=== PATIENT | female | born 1935 | race Caucasian/White ===

== ENCOUNTER → 2016-06-22 | Outpatient (CLI) | payer OTHER | END | disposition home or self-care (01) | LOC: CFH 07:43 | PROVIDERS: ATTEND Nurse Practitioner Family | DX: M71.21 Synovial cyst of popliteal space [Baker], right knee (principal) | CPT/HCPCS: 93970 ==

== ENCOUNTER 2016-09-10 16:39 | Inpatient (IN) | payer OTHER ==
[~2016-09-10] VITALS: Ht 160 cm; Wt 70.4 kg
[2016-09-10] MEDS ORDERED: SODIUM CHLORIDE FLUSH 10ML SYR IVF ONE (17:00)
[2016-09-10 17:39] LABS: ASPARTATE AMINO TRANSFERASE 16 U/L (15-37); BLOOD UREA NITROGEN 16 mg/dL (7-18)
[2016-09-10 17:44] LABS: IS PT STATUS REG ER OR PRE ER? YES
[2016-09-10] MEDS ORDERED: OMNIPAQUE 350 MG/ML, 100ML BOTTLE ONE (18:55)
[2016-09-10] MEDS ORDERED: LOVA40TA2 PO (20:31)
[2016-09-10] MEDS ORDERED: VIT1TABL32 PO (20:31)
[2016-09-10] MEDS ORDERED: CHOL400C PO (20:31)
[2016-09-10] MEDS ORDERED: AMLO10TA2 PO (20:31)
[2016-09-10] MEDS ORDERED: TEMAZEPAM 15 MG CAPSULE PO PRN (21:00)
[2016-09-10] MEDS ORDERED: hydrALAzine 20 MG/ML, 1ML IVPush PRN (21:00)
[2016-09-10] MEDS ORDERED: morphine SULFATE 10 MG/ML, 1ML IVPush PRN (21:00)
[2016-09-10] MEDS ORDERED: ACETAMINOPHEN 325 MG TABLET PO PRN (21:00)
[2016-09-10] MEDS ORDERED: ONDANSETRON ODT 4 MG PO PRN (21:00)
[2016-09-10] MEDS ORDERED: NITROGLYCERIN 0.4 MG BOTTLE (25 TABS) SL PRN (21:00)
[2016-09-10] MEDS ORDERED: DOCUSATE 100 MG CAPSULE PO PRN (21:00)
[2016-09-10 21:03] VITALS: BP 126/77
[2016-09-10 22:51] LABS: IS PT STATUS REG ER OR PRE ER? NO
[2016-09-10] MEDS: HEPARIN 5,000 UNITS/ML, 1ML SQ SCH (23:23)
[2016-09-10] MEDS: LOVASTATIN 40 MG TABLET PO SCH (23:23)
[2016-09-10] MEDS: SODIUM CHLORIDE 0.9% 1,000 ML IV SCH (23:23)
[2016-09-11 02:07] VITALS: BP 144/76
[2016-09-11 04:58] LABS: BLOOD UREA NITROGEN 12 mg/dL (7-18)
[2016-09-11 05:11] LABS: IS PT STATUS REG ER OR PRE ER? NO
[2016-09-11 07:51] VITALS: BP 120/76
[2016-09-11] MEDS ORDERED: REGADENOSON 0.4 MG/5 ML SYRINGE ONE (08:54)
[2016-09-11] MEDS: SODIUM CHLORIDE 0.9% 1,000 ML IV SCH (09:54)
[2016-09-11] MEDS: AMLODIPINE 5 MG TABLET PO SCH (11:25)
[2016-09-11] MEDS: CHOLECALCIFEROL 400 UNITS TABLET PO SCH (11:25)
[2016-09-11] MEDS: MULTIVITAMINS/MINERALS TABLET PO SCH (11:25)
[2016-09-11] MEDS: HEPARIN 5,000 UNITS/ML, 1ML SQ SCH (11:27)
[2016-09-11 13:36] VITALS: BP 123/80
[2016-09-11 19:15] VITALS: BP 129/75
[2016-09-11] MEDS: LOVASTATIN 40 MG TABLET PO SCH (21:12)
[2016-09-12 02:42] VITALS: BP 125/74
[2016-09-12 07:43] VITALS: BP 107/74
[2016-09-12] MEDS: CHOLECALCIFEROL 400 UNITS TABLET PO SCH (11:32)
[2016-09-12] MEDS: AMLODIPINE 5 MG TABLET PO SCH (11:33)
[2016-09-12] MEDS: MULTIVITAMINS/MINERALS TABLET PO SCH (11:33)
[2016-09-12] MEDS ORDERED: ATOR40TA PO (14:30)
[2016-09-12] MEDS ORDERED: CARV6.252 PO (14:30)
[2016-09-12] MEDS ORDERED: NITR0.4T SL (14:30)
[2016-09-12] MEDS ORDERED: ASPI-621 PO (14:38)
[2016-09-12 15:49] VITALS: BP 130/76
== END 2016-09-12 17:49 | disposition home or self-care (01) | DRG 206 ==
LOC: ED 18:49 → EDIP 19:48 → 5SO 22:10 → 3NE 09-11 16:55
PROVIDERS: ADMIT Internal Medicine; ATTEND Internal Medicine
DX: M94.0 Chondrocostal junction syndrome [Tietze] (principal); I20.0 Unstable angina; E78.00 Pure hypercholesterolemia, unspecified; I11.9 Hypertensive heart disease without heart failure; K44.9 Diaphragmatic hernia without obstruction or gangrene; K76.89 Other specified diseases of liver; R73.03 Prediabetes; D72.829 Elevated white blood cell count, unspecified; R00.0 Tachycardia, unspecified; E78.5 Hyperlipidemia, unspecified; R91.1 Solitary pulmonary nodule; Z87.891 Personal history of nicotine dependence; S29.011A Strain of muscle and tendon of front wall of thorax, initial encounter
CPT/HCPCS: 36415; 71010; 71275; 74175; 78452; 80048; 80053; 83735; 84100; 84439; 84443; 84484; 85025; 85379; 93005; 93017; 93306; 99285; J1644; J2785; Q9967; A9502; C9898; J7030

== ENCOUNTER → 2016-12-09 | Outpatient (CLI) | payer OTHER ==
[~2016-12-09] MED LIST: AMLO10TA2 PO; ASPI-621 PO; ATOR40TA PO; CARV6.252 PO; CHOL400C PO; LOVA40TA2 PO; NITR0.4T SL; VIT1TABL32 PO
== END | disposition home or self-care (01) ==
LOC: CFH 16:14
PROVIDERS: ATTEND Nurse Practitioner Family
DX: K83.8 Other specified diseases of biliary tract (principal); K76.89 Other specified diseases of liver; K82.8 Other specified diseases of gallbladder
CPT/HCPCS: 76705

== ENCOUNTER → 2016-12-22 | Outpatient (CLI) | payer OTHER ==
[~2016-12-22] MED LIST changes: +OMNIPAQUE 350 MG/ML, 100ML BOTTLE ONE
== END | disposition home or self-care (01) ==
LOC: CFH 09:53
PROVIDERS: ATTEND Nurse Practitioner
DX: K76.89 Other specified diseases of liver (principal); K86.89 Other specified diseases of pancreas; K44.9 Diaphragmatic hernia without obstruction or gangrene; K57.10 Diverticulosis of small intestine without perforation or abscess without bleeding; K82.8 Other specified diseases of gallbladder
CPT/HCPCS: 74177; Q9967

== ENCOUNTER 2016-12-27 13:29 | Inpatient (IN) | payer OTHER ==
[~2016-12-27] VITALS: Ht 157.5 cm; Wt 74.2 kg
[~2016-12-27 13:29] MED LIST changes: -OMNIPAQUE 350 MG/ML, 100ML BOTTLE ONE
[2016-12-27] MEDS ORDERED: SODIUM CHLORIDE 0.9% 1,000 ML IV ONE (14:19)
[2016-12-27] MEDS ORDERED: SODIUM CHLORIDE FLUSH 10ML SYR IVF ONE (14:30)
[2016-12-27 14:40] LABS: HEMATOCRIT 45.8 % (34.6-47.8); HEMOGLOBIN 15.6 g/dL (11.7-16.4); WHITE BLOOD COUNT 12.6 x10^3/uL (3.4-10)
[2016-12-27 14:48] LABS: ASPARTATE AMINO TRANSFERASE 166 U/L (15-37); BLOOD UREA NITROGEN 18 mg/dL (7-18)
[2016-12-27] MEDS ORDERED: hydrALAzine 20 MG/ML, 1ML IVPush PRN (18:00)
[2016-12-27] MEDS ORDERED: BISACODYL 10 MG SUPP PR PRN (18:00)
[2016-12-27] MEDS ORDERED: LABETALOL 5MG/ML, 20ML IVPush PRN (18:00)
[2016-12-27 20:00] VITALS: BP 149/81
[2016-12-27] MEDS: HEPARIN 5,000 UNITS/ML, 1ML SQ SCH (20:00)
[2016-12-27 20:19] VITALS: BP 149/81
[2016-12-27] MEDS: NS + 20MEQ KCL 1,000 ML IV SCH (20:40)
[2016-12-28 02:18] VITALS: BP 137/73
[2016-12-28] MEDS: NS + 20MEQ KCL 1,000 ML IV SCH ×3 (03:21→21:43)
[2016-12-28] MEDS: HEPARIN 5,000 UNITS/ML, 1ML SQ SCH ×3 (04:00→20:00)
[2016-12-28] MEDS: HYDROmorphone 2 MG/ML, 1ML IVPush PRN (05:28)
[2016-12-28] MEDS: ONDANSETRON 2MG/ML, 2ML IVPush PRN (05:38)
[2016-12-28 06:03] LABS: HEMATOCRIT 43.6 % (34.6-47.8); HEMOGLOBIN 14.9 g/dL (11.7-16.4); WHITE BLOOD COUNT 12.7 x10^3/uL (3.4-10)
[2016-12-28 06:13] LABS: BLOOD UREA NITROGEN 11 mg/dL (7-18)
[2016-12-28 07:25] VITALS: BP 144/83
[2016-12-28] MEDS: PANTOPRAZOLE 40 MG IV IVPush SCH (08:26)
[2016-12-28] MEDS: HYDROcodone/APAP 5/325 TABLET PO PRN (14:05)
[2016-12-28 14:08] VITALS: BP 159/82
[2016-12-28 20:00] VITALS: BP 139/78
[2016-12-29 01:11] VITALS: BP 129/82
[2016-12-29] MEDS: HEPARIN 5,000 UNITS/ML, 1ML SQ SCH ×3 (02:22→20:00)
[2016-12-29] MEDS: NS + 20MEQ KCL 1,000 ML IV SCH ×2 (03:37→16:43)
[2016-12-29 06:10] LABS: HEMATOCRIT 41.1 % (34.6-47.8); HEMOGLOBIN 13.9 g/dL (11.7-16.4); WHITE BLOOD COUNT 7.7 x10^3/uL (3.4-10)
[2016-12-29 06:15] LABS: BLOOD UREA NITROGEN 7 mg/dL (7-18)
[2016-12-29 06:19] LABS: ASPARTATE AMINO TRANSFERASE 137 U/L (15-37)
[2016-12-29 07:30] VITALS: BP 134/81
[2016-12-29] MEDS: PANTOPRAZOLE 40 MG IV IVPush SCH (08:49)
[2016-12-29] MEDS ORDERED: ONDANSETRON 2MG/ML, 2ML ONE (09:51)
[2016-12-29] MEDS ORDERED: DEXAMETHASONE 4 MG/ML, 1ML ONE (09:51)
[2016-12-29] MEDS ORDERED: PROPOFOL 10 MG/ML, 20ML ONE (09:51)
[2016-12-29] MEDS ORDERED: FENTANYL PF 100 MCG/2ML ONE ×3 (09:51→13:06)
[2016-12-29] MEDS ORDERED: MIDAZOLAM 1 MG/ML, 2ML ONE (09:51)
[2016-12-29] MEDS ORDERED: LIDOCAINE-MPF 2% ,5ML ONE (09:53)
[2016-12-29] MEDS ORDERED: LIDOCAINE GEL 2%, 5ML ONE (09:56)
[2016-12-29] MEDS ORDERED: SUCCINYLCHOLINE 20 MG/ML, 10ML ONE (10:41)
[2016-12-29] MEDS ORDERED: HYDROmorphone 1 MG/ML, 1ML IV PRN (11:00)
[2016-12-29] MEDS ORDERED: MEPERIDINE/PF 25MG/0.5ML IVPush PRN (11:00)
[2016-12-29] MEDS ORDERED: ONDANSETRON 2MG/ML, 2ML IVPush PRN (11:00)
[2016-12-29] MEDS ORDERED: ALBUTEROL SULFATE 2.5 MG/3 ML NPPB PRN (11:00)
[2016-12-29] MEDS ORDERED: MIDAZOLAM 1 MG/ML, 2ML IV PRN (11:00)
[2016-12-29] MEDS ORDERED: OXYcodone 5 MG/5 ML ORAL.SOL UDC PO PRN (11:00)
[2016-12-29] MEDS ORDERED: LABETALOL 5MG/ML, 20ML ONE (13:04)
[2016-12-29] MEDS: LABETALOL 5MG/ML, 20ML IV PRN ×3 (13:07→13:36)
[2016-12-29] MEDS: FENTANYL PF 100 MCG/2ML IV PRN ×2 (13:08→13:15)
[2016-12-29] MEDS ORDERED: OXYcodone 5 MG/5 ML ORAL.SOL UDC ONE (13:14)
[2016-12-29] MEDS ORDERED: hydrALAzine 20 MG/ML, 1ML IV PRN (13:30)
[2016-12-29 13:50] VITALS: BP 178/91
[2016-12-29] MEDS: HYDROcodone/APAP 5/325 TABLET PO PRN (15:35)
[2016-12-29 16:30] VITALS: BP 135/77
[2016-12-29 18:57] VITALS: BP 141/76
[2016-12-30] MEDS: NS + 20MEQ KCL 1,000 ML IV SCH ×3 (00:39→20:38)
[2016-12-30 01:07] VITALS: BP 124/73
[2016-12-30] MEDS: HEPARIN 5,000 UNITS/ML, 1ML SQ SCH ×3 (04:00→20:00)
[2016-12-30 06:11] LABS: HEMOGLOBIN 12.6 g/dL (11.7-16.4); WHITE BLOOD COUNT 11.5 x10^3/uL (3.4-10)
[2016-12-30 06:25] LABS: ASPARTATE AMINO TRANSFERASE 100 U/L (15-37); BLOOD UREA NITROGEN 11 mg/dL (7-18)
[2016-12-30 07:35] VITALS: BP 132/78
[2016-12-30] MEDS ORDERED: HYDROmorphone 1 MG/ML, 1ML ONE ×5 (07:50→21:10)
[2016-12-30] MEDS: ONDANSETRON 2MG/ML, 2ML IVPush PRN (07:57)
[2016-12-30] MEDS: HYDROmorphone 2 MG/ML, 1ML IVPush PRN ×5 (07:58→21:13)
[2016-12-30] MEDS: PANTOPRAZOLE 40 MG IV IVPush SCH (08:01)
[2016-12-30] MEDS ORDERED: NALOXONE 1 MG/ML, 2ML ONE (08:12)
[2016-12-30] MEDS ORDERED: FENTANYL PF 100 MCG/2ML ONE ×2 (08:12)
[2016-12-30] MEDS ORDERED: FLUMAZENIL 0.1 MG/1 ML, 5ML ONE (08:12)
[2016-12-30] MEDS ORDERED: MIDAZOLAM 1 MG/ML, 5ML ONE (08:12)
[2016-12-30] MEDS ORDERED: LIDOCAINE 1%, 20ML ONE (08:58)
[2016-12-30] MEDS: CEFTRIAXONE PMX 1GM/50ML 50 ML IV SCH (13:03)
[2016-12-30 15:00] VITALS: BP 129/80
[2016-12-30 21:45] VITALS: BP 130/76
[2016-12-31] MEDS ORDERED: HYDROmorphone 1 MG/ML, 1ML ONE ×5 (00:21→15:21)
[2016-12-31] MEDS: HYDROmorphone 2 MG/ML, 1ML IVPush PRN ×4 (00:27→15:30)
[2016-12-31] MEDS: NS + 20MEQ KCL 1,000 ML IV SCH ×3 (03:20→15:40)
[2016-12-31 03:31] VITALS: BP 135/81
[2016-12-31] MEDS: HEPARIN 5,000 UNITS/ML, 1ML SQ SCH ×2 (04:00→12:00)
[2016-12-31 05:57] LABS: BLOOD UREA NITROGEN 9 mg/dL (7-18)
[2016-12-31 06:02] LABS: ASPARTATE AMINO TRANSFERASE 71 U/L (15-37)
[2016-12-31 06:24] LABS: HEMATOCRIT 41.9 % (34.6-47.8); HEMOGLOBIN 13.9 g/dL (11.7-16.4); WHITE BLOOD COUNT 15.8 x10^3/uL (3.4-10)
[2016-12-31 07:00] VITALS: BP 137/79
[2016-12-31] MEDS: CEFTRIAXONE PMX 1GM/50ML 50 ML IV SCH (08:25)
[2016-12-31] MEDS: PANTOPRAZOLE 40 MG IV IVPush SCH (08:25)
[2016-12-31 13:00] VITALS: BP 143/79
[2016-12-31] MEDS ORDERED: OMNIPAQUE 350 MG/ML, 100ML BOTTLE ONE (14:35)
[2016-12-31] MEDS ORDERED: HYDR1LIQ6 PO (15:01)
== END 2016-12-31 17:43 | disposition home or self-care (01) | DRG 408 ==
LOC: ED 17:10 → 4WST 17:31
PROVIDERS: ADMIT Hospitalist; ATTEND Hospitalist
PROC: 0DJ08ZZ Inspection of Upper Intestinal Tract, Via Natural or Artificial Opening Endoscopic (ICD-10-PCS; 2016-12-29)
PROC: 0FBG8ZX Excision of Pancreas, Via Natural or Artificial Opening Endoscopic, Diagnostic (ICD-10-PCS; principal; 2016-12-29 10:30)
PROC: 0F9940Z Drainage of Common Bile Duct with Drainage Device, Percutaneous Endoscopic Approach (ICD-10-PCS; 2016-12-30)
PROC: 0F9 Hepatobiliary System and Pancreas, Drainage (ICD-10-PCS; 2016-12-30)
DX: C25.0 Malignant neoplasm of head of pancreas (principal); K83.1 Obstruction of bile duct; E43 Unspecified severe protein-calorie malnutrition; K76.89 Other specified diseases of liver; K86.89 Other specified diseases of pancreas; K44.9 Diaphragmatic hernia without obstruction or gangrene; E78.5 Hyperlipidemia, unspecified; K57.10 Diverticulosis of small intestine without perforation or abscess without bleeding; I10 Essential (primary) hypertension; Z80.8 Family history of malignant neoplasm of other organs or systems; Z87.891 Personal history of nicotine dependence; Z68.29 Body mass index [BMI] 29.0-29.9, adult; Z90.49 Acquired absence of other specified parts of digestive tract
CPT/HCPCS: 36415; 47533; 71260; 74170; 74181; 80048; 80053; 80061; 80076; 81001; 83690; 83735; 84100; 84439; 84443; 85025; 85610; 86301; 87086; 88172; 88173; 88177; 88307; 93005; 96360; 99156; 99157; J0696; J1100; J1170; J2250; J2405; J2704; J3010; J3480; J3490; Q9967; C1729; C1751; C1769; C1894; C9113; J0330; J0360; J2310; J7030

== ENCOUNTER 2017-03-02 19:45 | Inpatient (IN) | payer OTHER ==
[~2017-03-02] VITALS: Ht 157.5 cm; Wt 60.9 kg
[~2017-03-02 19:45] MED LIST changes: +HYDR1LIQ6 PO
[2017-03-02] MEDS ORDERED: AMLO10TA2 PO (21:04)
[2017-03-02] MEDS ORDERED: IBUP-1223 PO (21:05)
[2017-03-02] MEDS ORDERED: OMEP-110 PO (21:05)
[2017-03-02] MEDS ORDERED: OXYC20TA42 PO (21:06)
[2017-03-02] MEDS ORDERED: OXYC-307 PO (21:07)
[2017-03-02] MEDS ORDERED: SODIUM CHLORIDE FLUSH 10ML SYR IVF ONE (21:30)
[2017-03-02] MEDS ORDERED: SODIUM CHLORIDE 0.9% 1,000ML IVBOLUS ONE (21:30)
[2017-03-02 22:39] LABS: ASPARTATE AMINO TRANSFERASE 35 U/L (15-37); BLOOD UREA NITROGEN 40 mg/dL (7-18)
[2017-03-02 22:56] LABS: HEMATOCRIT 27.5 % (34.6-47.8); HEMOGLOBIN 9.3 g/dL (11.7-16.4)
[2017-03-02 23:31] LABS: ABG COLLECTION SITE RIGHT RADIAL; COLLATERAL CIRCULATION TESTING NORMAL
[2017-03-03] MEDS ORDERED: DOCUSATE 100 MG CAPSULE PO PRN (02:00)
[2017-03-03] MEDS ORDERED: PROMETHAZINE 25 MG/ML, 1ML IM PRN (02:00)
[2017-03-03] MEDS ORDERED: ONDANSETRON 2MG/ML, 2ML IVPush PRN (02:00)
[2017-03-03] MEDS ORDERED: ONDANSETRON ODT 4 MG PO PRN (02:00)
[2017-03-03] MEDS ORDERED: ACETAMINOPHEN 325 MG TABLET PO PRN (02:00)
[2017-03-03 03:00] LABS: HEMATOCRIT 27.5 % (34.6-47.8); HEMOGLOBIN 9.2 g/dL (11.7-16.4); WHITE BLOOD COUNT 9.5 x10^3/uL (3.4-10)
[2017-03-03 03:11] LABS: ASPARTATE AMINO TRANSFERASE 32 U/L (15-37); BLOOD UREA NITROGEN 37 mg/dL (7-18)
[2017-03-03 03:12] VITALS: BP 116/71
[2017-03-03 03:17] LABS: IS PT STATUS REG ER OR PRE ER? NO
[2017-03-03 03:45] VITALS: BP 100/67
[2017-03-03] MEDS ORDERED: MAGNESIUM SULFATE 3 GM in SODIUM CHLORIDE 0.9% 100 ML IV ONE (04:00)
[2017-03-03] MEDS: SODIUM CHLORIDE 0.9% 1,000 ML IV SCH ×3 (04:01→21:45)
[2017-03-03 08:09] VITALS: BP 116/71
[2017-03-03 08:42] LABS: IS PT STATUS REG ER OR PRE ER? NO
[2017-03-03] MEDS: CEFTRIAXONE PMX 1GM/50ML 50 ML IV SCH (13:43)
[2017-03-03] MEDS: DOXYCYCLINE 100 MG in DEXTROSE 5% 250 ML IV SCH (14:10)
[2017-03-03 15:22] VITALS: BP 129/76
[2017-03-03 15:38] VITALS: BP 141/79
[2017-03-03] MEDS ORDERED: OMNIPAQUE 350 MG/ML, 100ML BOTTLE ONE (16:44)
[2017-03-03 18:22] VITALS: BP 122/75
[2017-03-03] MEDS: GUAIFENESIN ER 600 MG TABLET PO SCH (19:28)
[2017-03-04 02:13] VITALS: BP 112/70
[2017-03-04] MEDS: DOXYCYCLINE 100 MG in DEXTROSE 5% 250 ML IV SCH (02:22)
[2017-03-04] MEDS: SODIUM CHLORIDE 0.9% 1,000 ML IV SCH ×2 (05:24→14:39)
[2017-03-04 05:34] LABS: HEMATOCRIT 26.2 % (34.6-47.8); HEMOGLOBIN 8.8 g/dL (11.7-16.4); WHITE BLOOD COUNT 8.6 x10^3/uL (3.4-10)
[2017-03-04 05:47] LABS: BLOOD UREA NITROGEN 15 mg/dL (7-18)
[2017-03-04 05:54] LABS: FERRITIN 966.5 ng/mL (8-252); TOTAL IRON BINDING CAPACITY 178 mcg/dL (250-450); TRANSFERRIN 66 mg/dL (200-360)
[2017-03-04 06:28] VITALS: BP 126/74
[2017-03-04] MEDS: POTASSIUM CHLORIDE 20 MEQ PACKET PO SCH ×2 (11:13→17:00)
[2017-03-04] MEDS: GUAIFENESIN ER 600 MG TABLET PO SCH ×2 (11:13→21:04)
[2017-03-04] MEDS: MAGNESIUM CHLORIDE 64 MG TABLET.DR PO SCH ×2 (11:13→21:04)
[2017-03-04 12:57] VITALS: BP 120/71
[2017-03-04] MEDS: CEFTRIAXONE PMX 1GM/50ML 50 ML IV SCH (14:39)
[2017-03-04 18:36] VITALS: BP 125/77
[2017-03-05 01:35] VITALS: BP 143/84
[2017-03-05] MEDS: SODIUM CHLORIDE 0.9% 1,000 ML IV SCH ×2 (02:05→17:29)
[2017-03-05 05:58] LABS: HEMATOCRIT 27.4 % (34.6-47.8); HEMOGLOBIN 9.3 g/dL (11.7-16.4); WHITE BLOOD COUNT 7.8 x10^3/uL (3.4-10)
[2017-03-05 06:07] LABS: BLOOD UREA NITROGEN 9 mg/dL (7-18)
[2017-03-05 06:08] LABS: ASPARTATE AMINO TRANSFERASE 25 U/L (15-37)
[2017-03-05 07:10] VITALS: BP 134/71
[2017-03-05] MEDS ORDERED: MAGNESIUM SULFATE PMX 2GM/50ML 50 ML IV ONE (08:00)
[2017-03-05] MEDS ORDERED: POTASSIUM CHLORIDE 20 MEQ PACKET PO SCH (08:00)
[2017-03-05] MEDS: GUAIFENESIN ER 600 MG TABLET PO SCH ×2 (09:03→21:12)
[2017-03-05] MEDS: MAGNESIUM CHLORIDE 64 MG TABLET.DR PO SCH ×2 (09:03→21:12)
[2017-03-05] MEDS: POTASSIUM CHLORIDE 20 MEQ TAB.ER.PRT PO SCH ×2 (10:24→17:29)
[2017-03-05 12:30] VITALS: BP 136/79
[2017-03-05] MEDS: CEFTRIAXONE PMX 1GM/50ML 50 ML IV SCH (12:30)
[2017-03-05] MEDS: MEROPENEM 1 GM in SODIUM CHLORIDE 0.9% 100 ML IV SCH (18:30)
[2017-03-05 22:59] VITALS: BP 149/88
[2017-03-06 02:35] VITALS: BP 147/83
[2017-03-06 05:04] LABS: BLOOD UREA NITROGEN 6 mg/dL (7-18)
[2017-03-06] MEDS: MEROPENEM 1 GM in SODIUM CHLORIDE 0.9% 100 ML IV SCH ×2 (05:30→17:38)
[2017-03-06] MEDS: SODIUM CHLORIDE 0.9% 1,000 ML IV SCH (05:30)
[2017-03-06 06:52] VITALS: BP 149/84
[2017-03-06] MEDS: GUAIFENESIN ER 600 MG TABLET PO SCH ×2 (08:27→20:06)
[2017-03-06] MEDS: POTASSIUM CHLORIDE 20 MEQ TAB.ER.PRT PO SCH ×2 (08:28→17:38)
[2017-03-06] MEDS: MAGNESIUM CHLORIDE 64 MG TABLET.DR PO SCH ×2 (08:28→20:06)
[2017-03-06 12:10] VITALS: BP 146/87
[2017-03-06 19:55] VITALS: BP 139/83
[2017-03-07 03:00] VITALS: BP 151/85
[2017-03-07] MEDS: MEROPENEM 1 GM in SODIUM CHLORIDE 0.9% 100 ML IV SCH ×3 (05:34→17:44)
[2017-03-07 05:59] LABS: HEMATOCRIT 28.7 % (34.6-47.8); HEMOGLOBIN 9.6 g/dL (11.7-16.4); WHITE BLOOD COUNT 7.4 x10^3/uL (3.4-10)
[2017-03-07 06:05] LABS: BLOOD UREA NITROGEN 7 mg/dL (7-18)
[2017-03-07] MEDS: POTASSIUM CHLORIDE 20 MEQ TAB.ER.PRT PO SCH ×2 (08:22→17:44)
[2017-03-07] MEDS: MAGNESIUM CHLORIDE 64 MG TABLET.DR PO SCH ×2 (08:22→20:45)
[2017-03-07] MEDS: GUAIFENESIN ER 600 MG TABLET PO SCH ×2 (08:22→20:45)
[2017-03-07 08:30] VITALS: BP 138/82
[2017-03-07 15:19] VITALS: BP 132/86
[2017-03-07 19:34] VITALS: BP 135/84
[2017-03-08 02:05] VITALS: BP 134/84
[2017-03-08 05:36] LABS: BLOOD UREA NITROGEN 12 mg/dL (7-18)
[2017-03-08 05:40] LABS: ASPARTATE AMINO TRANSFERASE 32 U/L (15-37)
[2017-03-08] MEDS: MEROPENEM 1 GM in SODIUM CHLORIDE 0.9% 100 ML IV SCH (06:13)
[2017-03-08 08:55] VITALS: BP 123/81
[2017-03-08] MEDS ORDERED: POTASSIUM CHLORIDE 20 MEQ TAB.ER.PRT PO SCH (09:00)
[2017-03-08] MEDS: MAGNESIUM CHLORIDE 64 MG TABLET.DR PO SCH (09:31)
[2017-03-08] MEDS: GUAIFENESIN ER 600 MG TABLET PO SCH (09:31)
[2017-03-08] MEDS ORDERED: MERO1VIA15 IV (13:05)
== END 2017-03-08 16:42 | DRG 871 ==
LOC: ED 21:22 → EDIP 03-03 00:36 → 3NE 03-03 02:26 → 5SO 03-03 03:38 → 4EST 03-03 15:30
PROVIDERS: ADMIT Surgery; ATTEND Internal Medicine
PROC: 0T9B70Z Drainage of Bladder with Drainage Device, Via Natural or Artificial Opening (ICD-10-PCS; 2017-03-02)
PROC: 02HV33Z Insertion of Infusion Device into Superior Vena Cava, Percutaneous Approach (ICD-10-PCS; principal; 2017-03-08)
PROC: B5181ZA Fluoroscopy of Superior Vena Cava using Low Osmolar Contrast, Guidance (ICD-10-PCS; 2017-03-08)
PROC: B548ZZA Ultrasonography of Superior Vena Cava, Guidance (ICD-10-PCS; 2017-03-08)
DX: A41.59 Other Gram-negative sepsis (principal); E43 Unspecified severe protein-calorie malnutrition; G93.40 Encephalopathy, unspecified; E87.3 Alkalosis; J18.9 Pneumonia, unspecified organism; D63.8 Anemia in other chronic diseases classified elsewhere; E86.0 Dehydration; N39.0 Urinary tract infection, site not specified; E78.00 Pure hypercholesterolemia, unspecified; E78.5 Hyperlipidemia, unspecified; E83.42 Hypomagnesemia; E87.6 Hypokalemia; I10 Essential (primary) hypertension; R32 Unspecified urinary incontinence; R62.7 Adult failure to thrive; Z80.8 Family history of malignant neoplasm of other organs or systems; Z90.411 Acquired partial absence of pancreas; Z85.07 Personal history of malignant neoplasm of pancreas; Z68.24 Body mass index [BMI] 24.0-24.9, adult
CPT/HCPCS: 36415; 36569; 36600; 70450; 71010; 71250; 71275; 76937; 77001; 80048; 80053; 80061; 81001; 82040; 82140; 82728; 82803; 83036; 83540; 83550; 83735; 84100; 84443; 84466; 84484; 85025; 85379; 85610; 85651; 85730; 86140; 87040; 87077; 87086; 87186; 99285; J0696; J2185; J2405; J3475; J7060; Q9967; C1751; J7030